=== PATIENT | male | born 1960 | race Caucasian/White ===

== ENCOUNTER → 2017-02-08 | Outpatient (CLI) | payer OTHER ==
--- NOTE | 2017-02-09 10:52 | RADIOLOGY REPORT (SQ) ---
EXAM DESCRIPTION: MRI RT LOWER JOINT WITHOUT COMPLETED DATE/TIME: 02/08/2017 5:52 pm REASON FOR STUDY: PAIN IN RIGHT KNEE M25.562 PAIN IN LEFT KNEE M25.561 PAIN IN RIGHT KNEE COMPARISON: None. TECHNIQUE: Rightknee images acquired and stored on PACS. Multiplanar images include fat sensitive s equences as T1, water sensitive sequences as FST2 or STIR, cartilage sensitive sequences as FSPD, and gradient echo sequences. LIMITATIONS: None. FINDINGS: JOINT AND BURSAE: No effusion. BONE CORTEX AND MARROW: No alteration of signal to suggest marrow replacement. No worrisome bone lesi ons. No occult fracture. ACL: Diffusely small with an intact anterior band. Suspect prior remote ACL injury. PCL: Intact. MCL: Intact. No periligamentous edema or fluid. LCL: Intact. No periligamentous edema or fluid. MEDIAL MENISCUS: Diffusely small midbody and posterior horn medial meniscus. There are multiple para meniscal cysts throughout the posterior horn medial meniscus posterior edge, best shown on coronal im age 20 and axial image 21. Suspect a complex degenerative tear throughout the posterior horn medial meniscus LATERAL MENISCUS: No tears. No abnormal signal. MEDIAL COMPARTMENT: Mild chondromalacia weight-bearing surface medial femoral condyle on coronal imag es 14-16. No subcortical cysts. LATERAL COMPARTMENT: Mild chondromalacia weight-bearing surface lateral femoral condyle, coronal imag es 14-16. No subcortical cysts. PATELLA: Moderate chondromalacia lateral patellar facet, high-grade chondromalacia lateral femoral co ndyle at the patellofemoral joint. Medial and lateral retinacula are intact. EXTENSOR MECHANISM: There is patella Ailyn on extension within the knee coil, high riding patella is s een on sagittal image 12. Quadriceps and patella tendons normal. SOFT TISSUES: Adjacent muscles and subcutaneous tissues normal. Normal flow void in popliteal artery and vein. OTHER: No other significant finding. 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 Question remote prior ACL injury Diffusely degenerated midbody and posterior horn medial meniscus with multiple parameniscal cysts. TECHNICAL DOCUMENTATION: JOB ID: [id number] [employer]- All Rights Reserved
--- NOTE | 2017-02-09 11:24 | RADIOLOGY REPORT (SQ) ---
EXAM DESCRIPTION: MRI LT LOWER JOINT WITHOUT COMPLETED DATE/TIME: 02/08/2017 5:52 pm REASON FOR STUDY: PAIN IN LEFT KNEE M25.562 PAIN IN LEFT KNEE M25.561 PAIN IN RIGHT KNEE COMPARISON: None. TECHNIQUE: Leftknee images acquired and stored on PACS. Multiplanar images include fat sensitive se quences as T1, water sensitive sequences as FST2 or STIR, cartilage sensitive sequences as FSPD, and gradient echo sequences. LIMITATIONS: None. FINDINGS: JOINT AND BURSAE: No effusion. BONE CORTEX AND MARROW: No alteration of signal to suggest marrow replacement. No worrisome bone lesi ons. No occult fracture. ACL: Diffusely small, with an intact anterior band. Question remote prior injury PCL: Intact. MCL: Intact. No periligamentous edema or fluid. LCL: Intact. No periligamentous edema or fluid. MEDIAL MENISCUS: Abnormal intrameniscal signal along the mid body and posterior horn, extending to th e superior articular surface from diffuse horizontal tear. No parameniscal cysts are present. LATERAL MENISCUS: No tears. No abnormal signal. MEDIAL COMPARTMENT: Moderate chondromalacia weight-bearing surface medial femoral condyle, medial tib ial plateau. No subcortical cysts or subcortical edema. LATERAL COMPARTMENT: Focal moderate chondromalacia in the weight-bearing surface left femoral condyle coronal image 18, sagittal image 19. No subcortical cyst formation. No subcortical edema PATELLA: Moderate medial patellar facet chondromalacia. No subchondral cysts. Medial and lateral reti nacula intact. EXTENSOR MECHANISM: Intact. Quadriceps and patella tendons normal. Mild patella dalila on sagittal vie w image 18. SOFT TISSUES: Adjacent muscles and subcutaneous tissues normal. Normal flow void in popliteal artery and vein. OTHER: No other significant finding. IMPRESSION: Patellofemoral, medial, and lateral compartment chondromalacia. Horizontal tear midbody, posterior horn medial meniscus without parameniscal cyst. Small ACL with intact anterior band, question prior remote injury. TECHNICAL DOCUMENTATION: JOB ID: [id number] [email or web address]- All Rights Reserved
== END ==
LOC: RAD 16:17
PROVIDERS: ATTEND Physician Assistant
DX: M25.562 Pain in left knee (principal); M25.561 Pain in right knee; M17.11 Unilateral primary osteoarthritis, right knee

== ENCOUNTER → 2018-07-28 | Outpatient (CLI) | payer OTHER ==
--- NOTE | 2018-07-28 12:11 | RADIOLOGY REPORT (SQ) ---
EXAM DESCRIPTION: ANKLE LEFT COMPLETE COMPLETED DATE/TIME: 07/28/2018 10:45 am REASON FOR STUDY: UNSPEC INJURY OF LEFT ANKLE, INITIAL ENCOUNTER S99.922A UNSPECIFIED INJURY OF LEF T FOOT, INITIAL ENCOUNTER S99.912A UNSPECIFIED INJURY OF LEFT ANKLE, INITIAL ENCOUNTER Twisted ankle 07/23/2018 medial ankle pain COMPARISON: None. NUMBER OF VIEWS: Three views. TECHNIQUE: AP, lateral, and oblique radiographic images acquired of the left ankle. LIMITATIONS: None. FINDINGS: MINERALIZATION: Normal. BONES: No acute fracture or dislocation. No worrisome bone lesions. Os trigonum is present. Small plantar calcaneal spur JOINTS: No tibiotalar joint effusion. Moderate diffuse medial soft tissue swelling SOFT TISSUES: No soft tissue swelling. No foreign body. OTHER: No other significant finding. IMPRESSION: Medial soft tissue swelling without acute fracture or disruption of the ankle mortise TECHNICAL DOCUMENTATION: JOB ID: [id number] [employer]- All Rights Reserved Reading location - IP/workstation name: [email or web address]
--- NOTE | 2018-07-28 12:13 | RADIOLOGY REPORT (SQ) ---
EXAM DESCRIPTION: FOOT LEFT COMPLETE COMPLETED DATE/TIME: 07/28/2018 10:45 am REASON FOR STUDY: UNSPEC INJURY OF LEFT FOOT, INITIAL ENCOUNTER S99.922A UNSPECIFIED INJURY OF LEFT FOOT, INITIAL ENCOUNTER S99.912A UNSPECIFIED INJURY OF LEFT ANKLE, INITIAL ENCOUNTER Twisted ankle and foot 07/23/2018 COMPARISON: Ankle films, tib fib films same date NUMBER OF VIEWS: Three views. TECHNIQUE: AP, lateral and oblique radiographic images acquired of the left foot. LIMITATIONS: None. FINDINGS: MINERALIZATION: Normal. BONES: No acute fracture or dislocation. No worrisome bone lesions. Os trigonum. Small dorsal and plantar calcaneal spurs. Bifid medial sesamoid bone 1st metatarsophalangeal joint JOINTS: No effusions. SOFT TISSUES: No soft tissue swelling. No foreign body. OTHER: No other significant finding. IMPRESSION: No acute findings TECHNICAL DOCUMENTATION: JOB ID: [id number] [employer]- All Rights Reserved Reading location - IP/workstation name: [email or web address]
--- NOTE | 2018-07-28 12:15 | RADIOLOGY REPORT (SQ) ---
EXAM DESCRIPTION: TIBIA FIBULA LEFT COMPLETED DATE/TIME: 07/28/2018 10:45 am REASON FOR STUDY: UNSPEC INJURY OF LEFT ANKLE, INITIAL ENCOUNTER S99.922A UNSPECIFIED INJURY OF LEF T FOOT, INITIAL ENCOUNTER S99.912A UNSPECIFIED INJURY OF LEFT ANKLE, INITIAL ENCOUNTER Twisted foot and ankle on 07/23/2018 with continued foot/ankle and lower leg pain COMPARISON: Left ankle and foot same date NUMBER OF VIEWS: Two views. TECHNIQUE: Two radiographic images acquired of the left tibia and fibula to include the knee and ank le in at least one projection. LIMITATIONS: None. FINDINGS: MINERALIZATION: Normal. BONES: No acute fracture or dislocation. No worrisome bone lesions. SOFT TISSUES: Mild medial ankle soft tissue swelling. No foreign body. OTHER: Osteoarthritis at the left knee with patellofemoral and medial compartment joint space narrowi ng. IMPRESSION: No acute fracture or malalignment. TECHNICAL DOCUMENTATION: JOB ID: [id number] [employer]- All Rights Reserved Reading location - IP/workstation name: [email or web address]
== END ==
LOC: RAD 10:03
PROVIDERS: ATTEND Physician Assistant
DX: S99.922A Unspecified injury of left foot, initial encounter (principal); S99.912A Unspecified injury of left ankle, initial encounter; M17.12 Unilateral primary osteoarthritis, left knee; M77.32 Calcaneal spur, left foot; X58.XXXA Exposure to other specified factors, initial encounter

== ENCOUNTER → 2018-08-05 | Outpatient (CLI) | payer OTHER ==
--- NOTE | 2018-08-05 14:03 | RADIOLOGY REPORT (SQ) ---
EXAM DESCRIPTION: VENOUS UNILATERAL LOWER COMPLETED DATE/TIME: 08/05/2018 1:52 pm REASON FOR STUDY: SWELLING PER DR SALVADOR M79.89 OTHER SPECIFIED SOFT TISSUE DISORDERS COMPARISON: None. TECHNIQUE: Dynamic and static negrete scale and color images acquired of the left leg venous system. Se lected spectral images acquired with additional compression and augmentation maneuvers. The contralat eral common femoral vein and saphenofemoral junction were also imaged. Images stored on PACS. LIMITATIONS: None. FINDINGS: LEFT COMMON FEMORAL: Normal phasicity, compression and augmentation. No visualized echogenic material on g ray scale. No defects on color images. FEMORAL: Normal compression and augmentation. No visualized echogenic material on negrete scale. No defe cts on color images. POPLITEAL: Normal compression, augmentation. No visualized echogenic material on negrete scale. No defec ts on color images. CALF VESSELS: Normal compression, augmentation. No visualized echogenic material on negrete scale. No de fects on color images. GSV and SSV: Normal compression, augmentation. No visualized echogenic material on negrete scale. No def ects on color images. ANY DEEP VENOUS INSUFFICIENCY: No reflux on Valsalva. ANY EVIDENCE OF POPLITEAL CYST: No. OTHER: No other significant finding. RIGHT COMMON FEMORAL VEIN AND SAPHENOFEMORAL JUNCTION: Normal phasicity, compression and augmentation. No visualized echogenic material on negrete scale. No de fects on color images. IMPRESSION: NO EVIDENCE OF DVT OR SVT IN THE LEFT LEG. TECHNICAL DOCUMENTATION: JOB ID: [id number] [employer]- All Rights Reserved Reading location - IP/workstation name: [email or web address]
== END ==
LOC: SP 10:50
PROVIDERS: ATTEND Physician Assistant
DX: M79.662 Pain in left lower leg (principal); R60.0 Localized edema
CPT/HCPCS: 93971

== ENCOUNTER 2018-09-05 17:40 | Emergency (ER) | payer OTHER ==
--- NOTE | 2018-09-05 18:24 | ER Document Report ---
ED Medical Screen (RME) - General Chief Complaint: Shortness Of Breath Stated Complaint: ABNORMAL LABS Time Seen by Provider: 09/05/18 18:21 Primary Care Provider: JOSE COOK PA [Primary Care Provider] - Follow up as needed Mode of Arrival: Ambulatory Information source: Patient Notes: pt presents with +ddimer per patient from dr cristobal office with pain with deep breath with increasedpain andswelling to LLL. recent us was negative but leg has red knot now with increased pain I have greeted and performed a rapid initial assessment of this patient. A com prehensive ED assessment and evaluation of the patient, analysis of test results and completion of the medical decision making process will be conducted by additional ED providers. TRAVEL OUTSIDE OF THE [place] IN LAST 30 DAYS: No - Related Data Allergies/Adverse Reactions: No Known Allergies Allergy (Unverified 09/05/18 18:22) Physical Exam - Vital signs Vitals: Temp Pulse Resp BP Pulse Ox 98.6 F 69 20 159/89 H 96 09/05/18 18:33 09/05/18 18:33 09/05/18 18:33 09/05/18 18:33 09/05/18 18:33 Course - Vital Signs Vital signs: Temp Pulse Resp BP Pulse Ox 98.6 F 69 20 159/89 H 96 09/05/18 18:33 09/05/18 18:33 09/05/18 18:33 09/05/18 18:33 09/05/18 18:33 Doctor's Discharge - Discharge Referrals: JOSE COOK PA [Primary Care Provider] - Follow up as needed
--- NOTE | 2018-09-05 21:25 | EKG REPORT ---
SEVERITY:- NORMAL ECG - SINUS RHYTHM : Confirmed by: Darby Roque MD 05-Sep-2018 21:24:08
[2018-09-05 21:31] LABS: ABSOLUTE BASOPHILS # (AUTO) 0.1 10^3/uL (0.0-0.2); ABSOLUTE EOSINOPHILS # (AUTO) 0.1 10^3/uL (0.0-0.6); ABSOLUTE LYMPHOCYTES (AUTO) 2.8 10^3/uL (0.5-4.7); ABSOLUTE MONOCYTES (AUTO) 0.8 10^3/uL (0.1-1.4); ABSOLUTE NEUT (AUTO) 3.3 10^3/uL (1.7-8.2); BASOPHILS % (AUTO) 0.9 % (0-2); EOSINOPHILS % (AUTO) 1.6 % (0-6); HEMATOCRIT 44.9 % (37.9-51.0); HEMOGLOBIN 15.9 g/dL (13.5-17.0); LYMPHOCYTES % (AUTO) 39.7 % (13-45); MEAN CORPUSCULAR HEMOGLOBIN 32.5 pg (27.0-33.4); MEAN CORPUSCULAR HGB CONC 35.4 g/dL (32.0-36.0); MEAN CORPUSCULAR VOLUME 92 fl (80-97); MONOCYTES % (AUTO) 11.7 % (3-13); PLATELET COUNT 164 10^3/uL (150-450); RED BLOOD COUNT 4.89 10^6/uL (4.35-5.55); RED CELL DISTRIBUTION WIDTH 12.4 % (11.5-14.0); SEGMENTED NEUTROPHILS % (AUTO) 46.1 % (42-78); TOTAL CELLS COUNTED % (AUTO) 100 %; WHITE BLOOD COUNT 7.1 10^3/uL (4.0-10.5)
[2018-09-05 21:45] LABS: ALANINE AMINOTRANSFERASE 78 U/L (21-72); ALBUMIN 4.6 g/dL (3.5-5.0); ALKALINE PHOSPHATASE 94 U/L (38-126); ANION GAP 12 (5-19); ASPARTATE AMINO TRANSFERASE 56 U/L (17-59); BILIRUBIN,DIRECT 0.2 mg/dL (0.0-0.4); BILIRUBIN,TOTAL 0.6 mg/dL (0.2-1.3); BLOOD UREA NITROGEN 19 mg/dL (7-20); CALCIUM 9.9 mg/dL (8.4-10.2); CARBON DIOXIDE 28 mmol/L (22-30); CHLORIDE 99 mmol/L (98-107); GLUCOSE 107 mg/dL (75-110); POTASSIUM 3.7 mmol/L (3.6-5.0); SODIUM 138.5 mmol/L (137-145); TOTAL PROTEIN 8.4 g/dL (6.3-8.2)
--- NOTE | 2018-09-06 00:26 | RADIOLOGY REPORT (SQ) ---
CT CHEST ANGIOGRAPHY WITHOUT THEN WITH IV CONTRAST HISTORY: Shortness of breath. Elevated d-dimer. Evaluate for pulmonary embolism. COMPARISON: None. TECHNIQUE: CT angiogram of the chest with IV contrast. 3-D MIP images were obtained in coronal and sagittal reconstructions. This exam was performed according to our departmental dose-optimization program, which includes automated exposure control, adjustment of the mA and/or kV according to patient size and/or use of iterative reconstruction technique. FINDINGS: No filling defects are identified in the pulmonary trunk, main left and right pulmonary arteries, or the segmental branches. No aortic aneurysm or dissection is seen. The thyroid gland is normal. No mediastinal or hilar adenopathy. The heart size is normal without pericardial effusion. No consolidation, pleural effusion, or pneumothorax is identified. The visualized upper abdomen demonstrates no acute findings. No acute osseous findings are seen. IMPRESSION: No acute pulmonary embolism.
--- NOTE | 2018-09-06 00:40 | RADIOLOGY REPORT (SQ) ---
US LOWER EXTREMITY VEINS EXAM DATE: 09/05/2018 19:53 HISTORY: Leg pain and swelling. COMPARISON: None. TECHNIQUE: Grayscale, color Doppler, and spectral Doppler images of the left lower extremity were performed. FINDINGS: The common femoral, superficial femoral and popliteal veins are patent and compressible. Normal augmentation and color Doppler blood flow in the aforementioned veins. The visualized calf veins are also patent. IMPRESSION: No evidence of deep venous thrombosis in the left lower extremity.
[2018-09-06 01:17] VITALS: BP 164/86
--- NOTE | 2018-09-06 01:36 | ER Document Report ---
ED General - General Chief Complaint: Shortness Of Breath Stated Complaint: ABNORMAL LABS Time Seen by Provider: 09/05/18 18:21 Primary Care Provider: JOSE COOK PA [NO LOCAL MD] - Follow up as needed Mode of Arrival: Ambulatory Notes: Patient is a 58-year-old male without chronic medical problems, presents complaining of 2 separate issues. His first concern is of 2 weeks of swelling, redness and pain to his left distal lower extremity. States that the area initially started due to a fall with associated bruising. States that it subsequently became red, hot, was treated as cellulitis with 2 separate antibiotics with initial resolution but then has returned. He states that Wed he had an adjustment by chiropractor and on Wednesday began developing pain to the right lower rib space worsened by breathing, coughing or moving. Saw his primary care doctor, d-dimer was drawn which turned to be positive. The patient was subsequent referred to the emergency department for CTA of his chest as well as a repeat ultrasound of his left lower extremity. He has had one previous ult rasound which was negative for DVT. The patient describes the pain in his left leg as being a dull, throbbing, burning, constant discomfort. Nothing improves or worsens that discomfort. He also reports a throbbing, constant aching pain to the right lower ribs again dramatically worsened by breathing or moving. He denies any history of venous thromboembolism in the past. Denies chest pain. Has not had fever or constitutional symptoms. TRAVEL OUTSIDE OF THE [place] IN LAST 30 DAYS: No - Related Data Allergies/Adverse Reactions: No Known Allergies Allergy (Unverified 09/05/18 18:22) Past Medical History - General Information source: Patient - Social History Smoking Status: Former Smoker Chew tobacco use (# tins/day): No Frequency of alcohol use: Occasional Drug Abuse: None Lives with: Spouse/Significant other Family History: Reviewed & Not Pertinent Patient has suicidal ideation: No Patient has homicidal ideation: No Renal/ Medical History: Denies: Hx Peritoneal Dialysis Past Surgical History: Reports: Hx Bowel Surgery - bowel resection Review of Systems - Review of Systems Notes: Constitutional: Negative for fever. HENT: Negative for sore throat. Eyes: Negative for visual changes. Cardiovascular: Negative for chest pain. Respiratory: Negative for shortness of breath. Gastrointestinal: Negative for abdominal pain, vomiting or diarrhea. Genitourinary: Negative for dysuria. Musculoskeletal: Positive for right lower rib pain, positive for left lower extremity pain Skin: Positive for rash. Neurological: Negative for headaches, weakness or numbness. 10 point ROS negative except as marked above and in HPI. Physical Exam - Vital signs Vitals: Temp Pulse Resp BP Pulse Ox 98.6 F 69 20 159/89 H 96 09/05/18 18:33 09/05/18 18:33 09/05/18 18:33 09/05/18 18:33 09/05/18 18:33 Interpretation: Hypertensive Notes: PHYSICAL EXAMINATION: GENERAL: Well-appearing, well-nourished and in no acute distress. HEAD: Atraumatic, normocephalic. EYES: Pupils equal round and reactive to light, extraocular movements intact, sclera anicteric, conjunctiva are normal. ENT: nares patent, oropharynx clear without exudates. Moist mucous membranes. NECK: Normal range of motion, supple without lymphadenopathy LUNGS: Breath sounds clear to auscultation bilaterally and equal. No wheezes rales or rhonchi. HEART: Regular rate and rhythm without murmurs Chest wall: Pain on palpation of the right lower 3 ribs bases ABDOMEN: Soft, nontender, normoactive bowel sounds. No guarding, no rebound. No masses appreciated. EXTREMITIES: Normal range of motion, no pitting or edema. No cyanosis. NEUROLOGICAL: No focal neurological deficits. Moves all extremities spontaneously and on command. PSYCH: Normal mood, normal affect. SKIN: Warm, Dry, normal turgor, erythema over the tibial surface just above the level of the ankle with an area of what appears to be fluctuance versus a ecchymosis Course - Re-evaluation Re-evalutation: 09/06/18 01:32 Patient presents with 2 distinct complaints. First concern is that he has had some pleuritic chest discomfort for the past 24 hours after having an adjustment at a chiropractor 2 days previous. He is entirely reproducible on palpation of the right lower ribs, appears muscular skeletal in origin. However a d-dimer was sent by the patient's primary care doctor, noted to be elevated and he was referred to the emergency department. CT of the chest is negative for any evidence of acute pulmonary muscle or rib injury. Patient clinical history is not consistent with ACS, denies any distinct chest pain this appears to be entirely muscular skeletal. The patient second complaint is of left lower semi- swelling and redness for the past 2 weeks. Venous Doppler without evidence of DVT. Appears entirely consistent with a cellulitis. A small area of fluctuance with underlying fluid collection was drained, only bloody material was expressed. Patient was prescribed antibiotics by his primary care doctor and is currently taking these starting today. I have advised him to continue the antibiotics as prescribed by his primary physician. At this time will discharge with return precautions and follow-up recommendations. Verbal discharge instructions given a the bedside and opportunity for questions given. Medication warnings reviewed. Patient is in agreement with this plan and has verbalized understanding of return precautions and the need for primary care follow-up in the next 24-72 hours. - Vital Signs Vital signs: Temp Pulse Resp BP Pulse Ox 98.6 F 69 20 164/86 H 97 09/05/18 18:33 09/05/18 18:33 09/06/18 01:01 09/06/18 01:01 09/06/18 01:01 - Laboratory Result Diagrams: 09/05/18 20:50 09/05/18 20:50 Laboratory results interpreted by me: 09/05/18 20:50 ALT 78 H Total Protein 8.4 H - Diagnostic Test Radiology reviewed: Reports reviewed Discharge - Discharge Clinical Impression: Costochondritis, Rib pain on right side, Left leg cellulitis Condition: Good Disposition: HOME, SELF-CARE Additional Instructions: The rash is likely due to infection of your skin. Your ultrasound of the leg was normal and the CT scan of your chest does not show pulmonary embolus. Take antibiotics at your primary doctor prescribed you for your leg. You should also return if you develop fevers with temperature greater than 101, persistent vomiting, worsening pain, pass out, or have any other symptoms that are marcus rning to you. Referrals: JOSE COOK PA [NO LOCAL MD] - Follow up as needed
== END 2018-09-06 01:51 | disposition home or self-care (01) ==
LOC: ER 17:40
DX: M94.0 Chondrocostal junction syndrome [Tietze] (principal); L03.116 Cellulitis of left lower limb; R06.02 Shortness of breath; R07.81 Pleurodynia
CPT/HCPCS: 36415; 71275; 80053; 85025; 93005; 93010; 93971; 99285

== ENCOUNTER → 2018-09-05 | Outpatient (CLI) | payer OTHER ==
[2018-09-05 14:08] LABS: ABSOLUTE BASOPHILS # (AUTO) 0.1 10^3/uL (0.0-0.2); ABSOLUTE EOSINOPHILS # (AUTO) 0.1 10^3/uL (0.0-0.6); ABSOLUTE LYMPHOCYTES (AUTO) 2.2 10^3/uL (0.5-4.7); ABSOLUTE MONOCYTES (AUTO) 0.8 10^3/uL (0.1-1.4); ABSOLUTE NEUT (AUTO) 3.5 10^3/uL (1.7-8.2); BASOPHILS % (AUTO) 1.2 % (0-2); EOSINOPHILS % (AUTO) 1.9 % (0-6); HEMATOCRIT 43.5 % (37.9-51.0); HEMOGLOBIN 15.4 g/dL (13.5-17.0); LYMPHOCYTES % (AUTO) 32.8 % (13-45); MEAN CORPUSCULAR HEMOGLOBIN 32.7 pg (27.0-33.4); MEAN CORPUSCULAR HGB CONC 35.4 g/dL (32.0-36.0); MEAN CORPUSCULAR VOLUME 92 fl (80-97); MONOCYTES % (AUTO) 12.3 % (3-13); PLATELET COUNT 163 10^3/uL (150-450); RED BLOOD COUNT 4.71 10^6/uL (4.35-5.55); RED CELL DISTRIBUTION WIDTH 12.7 % (11.5-14.0); SEGMENTED NEUTROPHILS % (AUTO) 51.8 % (42-78); TOTAL CELLS COUNTED % (AUTO) 100 %; WHITE BLOOD COUNT 6.7 10^3/uL (4.0-10.5)
--- NOTE | 2018-09-05 14:17 | RADIOLOGY REPORT (SQ) ---
EXAM DESCRIPTION: RIBS RIGHT W/PA CHEST COMPLETED DATE/TIME: 09/05/2018 1:54 pm REASON FOR STUDY: RIB PAIN ON RT SIDE; PAINFUL BREATHING R07.1 CHEST PAIN ON BREATHING R07.81 PLEU RODYNIA COMPARISON: None. TECHNIQUE: Frontal view of the chest and additional views of the right ribs acquired. NUMBER OF VIEWS: 6 LIMITATIONS: None. FINDINGS: FRONTAL CXR: No pneumothorax. No pleural effusion. No atelectasis or infiltrates. RIBS: No rib fractures. There is an area of sclerosis in the 8th anterior rib. OTHER: No other significant finding. IMPRESSION: Bone island versus blastic metastasis in the 8th anterior rib. No fracture is seen. Co nsider bone scan for further evaluation. COMMENT: SITE OF TRAUMA/COMPLAINT MARKED/STAMP COMPLETED: No TECHNICAL DOCUMENTATION: JOB ID: [id number] [employer]- All Rights Reserved Reading location - IP/workstation name: [email or web address]
[2018-09-05 14:37] LABS: ALANINE AMINOTRANSFERASE 70 U/L (21-72); ALBUMIN 4.4 g/dL (3.5-5.0); ALKALINE PHOSPHATASE 77 U/L (38-126); ANION GAP 14 (5-19); ASPARTATE AMINO TRANSFERASE 52 U/L (17-59); BILIRUBIN,DIRECT 0.4 mg/dL (0.0-0.4); BILIRUBIN,TOTAL 0.8 mg/dL (0.2-1.3); BLOOD UREA NITROGEN 18 mg/dL (7-20); CALCIUM 9.7 mg/dL (8.4-10.2); CARBON DIOXIDE 25 mmol/L (22-30); CHLORIDE 100 mmol/L (98-107); GLUCOSE 121 mg/dL (75-110); POTASSIUM 3.5 mmol/L (3.6-5.0); SODIUM 138.6 mmol/L (137-145); TOTAL PROTEIN 7.7 g/dL (6.3-8.2)
== END ==
LOC: OD 13:25
PROVIDERS: ATTEND Physician Assistant
DX: R07.1 Chest pain on breathing (principal); R07.81 Pleurodynia
CPT/HCPCS: 36415; 80053; 85025; 85379

== ENCOUNTER → 2018-09-19 | Outpatient (CLI) | payer OTHER ==
--- NOTE | 2018-09-19 09:38 | RADIOLOGY REPORT (SQ) ---
EXAM DESCRIPTION: RIBS RIGHT W/PA CHEST COMPLETED DATE/TIME: 09/19/2018 8:57 am REASON FOR STUDY: RIB PAIN ON RIGHT SIDE R07.81 PLEURODYNIA COMPARISON: 09/05/2018 TECHNIQUE: Frontal view of the chest and additional views of the right ribs acquired. NUMBER OF VIEWS: Seven view. LIMITATIONS: None. FINDINGS: FRONTAL CXR: No pneumothorax. No pleural effusion. No atelectasis or infiltrates. RIBS: Slightly displaced fracture right 8th rib. As on the previous examination, there are scleroti c areas within the right 6th, 7th and 8th ribs. These findings raise the question of bone islands ve rsus possible blastic lesions. OTHER: No other significant finding. IMPRESSION: 1. Stable examination of the chest since the prior study dated 09/05/2018. 2. Subacute right 8th slightly displaced rib fracture. 3. As on the prior examination, sclerotic areas within the right 6th, 7th and 8th ribs. Considerati ons for these findings include bone islands with the possibility of blastic metastasis not entirely e xcluded. Consider bone scan examination for further evaluation. COMMENT: SITE OF TRAUMA/COMPLAINT MARKED/STAMP COMPLETED: NO. TECHNICAL DOCUMENTATION: JOB ID: [id number] [employer]- All Rights Reserved Reading location - IP/workstation name: [email or web address]
== END ==
LOC: OD 08:33
PROVIDERS: ATTEND Physician Assistant
DX: S22.31XD Fracture of one rib, right side, subsequent encounter for fracture with routine healing (principal); R07.81 Pleurodynia; X58.XXXD Exposure to other specified factors, subsequent encounter

== ENCOUNTER → 2018-09-27 | Outpatient (CLI) | payer OTHER ==
--- NOTE | 2018-09-27 13:57 | RADIOLOGY REPORT (SQ) ---
EXAM DESCRIPTION: NM 3 PHASE BONE SCAN COMPLETED DATE/TIME: 09/27/2018 12:56 pm REASON FOR STUDY: R93.89 ABNORMAL FINDINGS ON DX IMAGING OF OTH BODY STRUCTURES R93.89 ABNORMAL FIN DINGS ON DX IMAGING OF OTH BODY STRUCTURE COMPARISON: Right ribs 09/19/2018 RADIONUCLIDE AND DOSE: 20 millicuries Tc99m HDP. The route of agent administration: Intravenous. ADDITIONAL DRUGS AND DOSES: None. TECHNIQUE: Following injection of the radiopharmaceutical, serial blood flow images acquired. Equil ibrium blood pool images then acquired. Routine delayed images at 3 hours acquired of the areas of c linical concern with additional focused images as needed. AREA OF INTEREST: Right ribs LIMITATIONS: None. FINDINGS: VASCULAR FLOW IMAGES: No asymmetry or focal areas of hyperemia. BLOOD POOL IMAGES: There is slightly increased blood pool activity in the right ribs. BONES: Delayed images show intense focal uptake in the right 8th rib laterally. KIDNEYS: Symmetric excretion without obstruction. OTHER: No other significant finding. IMPRESSION: There is intense uptake in the right 8th rib laterally that correlates with the subacute fracture seen on the radiographs. The appearance of the scan does not suggest metastatic disease to bone. COMMENT: Quality measure 147: Current bone scan is compared with any available plain radiographs, p rior bone scans, and CT/MRI. TECHNICAL DOCUMENTATION: JOB ID: [id number]- All Rights Reserved Reading location - IP/workstation name: [email or web address]
== END ==
LOC: RAD 08:45
PROVIDERS: ATTEND Physician Assistant
DX: R93.89 Abnormal findings on diagnostic imaging of other specified body structures (principal)
CPT/HCPCS: 78315; A9561; Q9969